=== PATIENT | male | born 1980 | race Hispanic/Latino ===

== ENCOUNTER 2024-05-29 06:13 | Day surgery (SDC) | payer OTHER ==
[2024-05-29] VITALS (10 sets, daily range): BP systolic 103–119; BP diastolic 56–72; PULSE 60–68; RESP 15–18; TEMP 97.6
[~2024-05-29] VITALS: Ht 162.6 cm; Wt 68.0 kg
[2024-05-29] MEDS ORDERED: LIDOCAINE PF 100MG/5ML (2%) SYRINGE 5ML ONE (07:37)
[2024-05-29] MEDS ORDERED: proPOFol 10 MG/ML 20ML VIAL IV ONE (07:37)
[2024-05-29] MEDS ORDERED: GLYCOPYRROLATE 0.2 MG/ML 5 ML VIAL ONE (07:38)
[2024-05-29] MEDS: 0.9%NACL 1000ML 1,000 ML IV ONE (07:43)
[2024-05-29] MEDS ORDERED: IBUP-2482 PO (07:45)
[2024-05-29] MEDS ORDERED: ACET-66 PO (07:45)
[2024-05-29] MEDS ORDERED: ACET-2247 PO ×2 (07:45)
[2024-05-29] MEDS ORDERED: POLY17PO4 PO (07:45)
--- NOTE | 2024-05-29 09:50 | NUR ---
Full and complete discharge instructions given to Patient and Custodial Officers both verbally and in writing. Explained GI procedure precautions and follow up. All questions answered. PIV removed with catheter tip intact. Transported back to [facility] [place] with Guards in State Vehicle.
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
== END 2024-05-29 09:50 ==
LOC: DAH 06:13 → ENDO 06:13 → EEVIPCON 12:00
PROVIDERS: ATTEND Surgery
DX: Z43.3 Encounter for attention to colostomy (principal); R10.10 Upper abdominal pain, unspecified; K21.9 Gastro-esophageal reflux disease without esophagitis; K57.30 Diverticulosis of large intestine without perforation or abscess without bleeding; E66.9 Obesity, unspecified; Z79.899 Other long term (current) drug therapy; Z98.890 Other specified postprocedural states; Z83.3 Family history of diabetes mellitus; Z68.25 Body mass index [BMI] 25.0-25.9, adult; Z90.49 Acquired absence of other specified parts of digestive tract
CPT/HCPCS: 43235; 44388; J7030 ×2; J2003; J2704; J3490; A4620; A4215 ×2; A4223; A4222; A4221; A4663; A4606